=== PATIENT | female | born 1990 | race Caucasian/White ===

== ENCOUNTER 2017-03-18 07:11 | Emergency (ER) | payer MEDICAID ==
[~2017-03-18] VITALS: Ht 162.6 cm; Wt 69.2 kg
[~2017-03-18 07:11] MED LIST: BENZ1LOZ61 PO; NAPR-1154 PO
[2017-03-18] MEDS ORDERED: AMOX500C2 PO (07:43)
[2017-03-18 07:58] VITALS: BP 110/72
== END 2017-03-18 07:59 | disposition home or self-care (01) ==
LOC: ER 07:13
DX: R59.1 Generalized enlarged lymph nodes (principal); K08.89 Other specified disorders of teeth and supporting structures; J02.9 Acute pharyngitis, unspecified; Z59.0 Homelessness
CPT/HCPCS: 99283

== ENCOUNTER 2017-06-27 05:48 | Emergency (ER) | payer MEDICAID | END 2017-06-27 06:54 | disposition left against medical advice (07) | LOC: ER 05:49 | DX: Z53.21 Procedure and treatment not carried out due to patient leaving prior to being seen by health care provider (principal) ==

== ENCOUNTER 2019-02-12 22:17 | Emergency (ER) | payer OTHER ==
[~2019-02-12] VITALS: Ht 160 cm; Wt 61.4 kg
[2019-02-12] MEDS ORDERED: ketorolac trometh. 30mg/ml inj. IV ONE (23:00)
[2019-02-12] MEDS ORDERED: normal saline 1000ml 1,000 ML IV ONE (23:00)
[2019-02-12] MEDS ORDERED: ibuprofen tablet 400 MG TABLET PO ONE (23:00)
[2019-02-12] MEDS ORDERED: acetaminophen 325mg tablet PO ONE (23:00)
[2019-02-12 23:14] LABS: CLARITY,URINE SLIGHTLY CLOUDY (Clear); COLOR,URINE YELLOW (Yellow); GLUCOSE, URINE NEGATIVE (Neg); KETONES,URINE NEGATIVE (Neg); LEUKOCYTE ESTERASE ,URINE SMALL (Neg); NITRITES, URINE NEGATIVE (Neg); OCCULT BLOOD,URINE TRACE-INTACT (Neg); PH,URINE 5.5 (4.8-8.0); PROTEIN,URINE 100 mg/dl (Neg); UROBILINOGEN,URINE 0.2 E.U/dL (0.2-1.0)
--- NOTE | 2019-02-12 23:14 | NUR ---
CALLED HOUSE [facility]P FOR U/S DUE TO NO CALL BACK AT 23:15
[2019-02-12 23:15] LABS: URINE HCG NEGATIVE (NEG)
[2019-02-12 23:21] LABS: UA COLLECTION TYPE CLN CATCH MIDSTREAM
[2019-02-12 23:22] LABS: RBC,URINE 0-2 /HPF (0-2)
[2019-02-12 23:23] LABS: BACTERIA,URINE FEW /HPF (Neg); MUCUS STRANDS FEW /LPF (Neg); SQUAMOUS EPITHELIAL CELL,UR MODERATE /LPF (FEW)
[2019-02-13] MEDS ORDERED: ondansetron 4mg rapidly disintigrating tab PO ONE (00:35)
[2019-02-13 00:38] LABS: BASOPHILS # (AUTO) 0.1 X10'3 (0-0.2); BASOPHILS % (AUTO) 0.5 % (0-1); EOSINOPHILS % (AUTO) 0.3 % (0-6); HEMATOCRIT 38.4 % (35.0-45.0); HEMOGLOBIN 13.4 g/dl (12.0-16.0); LYMPHOCYTES # (AUTO) 2.7 X10'3 (1.1-4.8); LYMPHOCYTES % (AUTO) 25.9 % (21-51); MEAN CORPUSCULAR HEMOGLOBIN 29.9 PG (27.0-31.0); MEAN CORPUSCULAR HGB CONC 34.9 g/dL (33.0-36.5); MEAN CORPUSCULAR VOLUME 85.7 FL (78-98); MEAN PLATELET VOLUME 7.8 FL (7.4-10.4); MONOCYTES # (AUTO) 0.8 X10'3 (0-0.9); MONOCYTES % (AUTO) 7.9 % (2-12); NEUTROPHILS # (AUTO) 6.8 X10'3 (1.8-7.7); NEUTROPHILS % (AUTO) 65.4 % (42-75); PLATELET COUNT 234 X10'3 (140-440); RED BLOOD COUNT 4.49 X10'6 (4.20-5.60); RED CELL DISTRIBUTION WIDTH 14.1 % (11.5-14.5); WHITE BLOOD COUNT 10.5 X10'3 (4.5-11.0)
[2019-02-13] MEDS ORDERED: MAGN296S50 PO (00:40)
[2019-02-13 00:56] LABS: ALANINE AMINOTRANSFERASE 17 U/L (12-78); ALBUMIN 4.2 G/DL (3.4-5.0); ALKALINE PHOSPHATASE 76 IU/L (46-116); ANION GAP 9 (8-16); ASPARTATE AMINO TRANSFERASE 11 U/L (10-37); BILIRUBIN,TOTAL 0.6 MG/DL (0.1-1.0); BLOOD UREA NITROGEN 21 MG/DL (7-18); BUN/CREATININE RATIO 21.6 (6.6-38.0); CALCIUM 9.5 MG/DL (8.5-10.1); CHLORIDE 104 MMOL/L (99-107); CREATININE 0.97 MG/DL (0.40-0.90); GLUCOSE 111 MG/DL (70-104); LIPASE 76 U/L (73-393); POTASSIUM 3.8 MMOL/L (3.5-5.1); SODIUM 141 MMOL/L (135-145); TOTAL CARBON DIOXIDE 27.8 MMOL/L (24-32); TOTAL PROTEIN 8.3 G/DL (6.4-8.2); eGFR 67 ML/MIN
[2019-02-13 05:09] VITALS: BP 123/80
== END 2019-02-13 01:00 ==
LOC: ER 22:18
DX: K59.00 Constipation, unspecified (principal); R10.84 Generalized abdominal pain; Z59.0 Homelessness; Z60.2 Problems related to living alone; Z56.0 Unemployment, unspecified; Z79.899 Other long term (current) drug therapy
CPT/HCPCS: 36415; 74176; 76856; 80053; 81001; 81025; 83605; 83690; 84145; 85025; 87088; 99284